=== PATIENT | male | born 1985 | race American Indian/Alaskan Native ===

== ENCOUNTER 2017-03-03 09:33 | Outpatient (CLI) | payer OTHER ==
--- NOTE | 2017-03-03 10:53 | XRay Report ---
RIGHT SHOULDER RADIOGRAPHS INDICATION: Right shoulder pain. COMPARISON: None similar. FINDINGS: Frontal and Y views of the right shoulder, 3 projections demonstrate normal humeral head contour, well positioned against the glenoid. Normal acromioclavicular joint. Preserved scapular contour. Normal visualized soft tissues, right ribs and lung. Motion artifact limits Y view. CONCLUSION: No acute right shoulder radiographic abnormality, as described. Thank you for the opportunity to participate in this patient's care.
--- NOTE | 2017-03-03 11:01 | XRay Report ---
AP AND LATERAL LUMBOSACRAL SPINE: History: Low back pain. The vertebral bodies are well mineralized and normal in alignment and vertebral height with well preserved interspace distances. The visualized portions of the posterior elements are normal. IMPRESSION: Normal study.
== END 2017-03-03 09:34 | disposition home or self-care (01) ==
LOC: XRAY 09:33
PROVIDERS: ATTEND Internal Medicine
DX: I10 Essential (primary) hypertension (principal); Q61.3 Polycystic kidney, unspecified; M54.5 Low back pain; M25.511 Pain in right shoulder
CPT/HCPCS: 36415; 72100; 82565

== ENCOUNTER 2021-04-21 17:57 | Emergency (ER) | payer OTHER ==
[2021-04-21] MEDS ORDERED: HYDROmorphone 1 MG/1 ML INJ IV ONE ×2 (18:14→20:09)
[2021-04-21] MEDS ORDERED: ONDANSETRON 4 MG/2 ML INJ IV ONE ×2 (18:14→20:09)
--- NOTE | 2021-04-21 18:22 | Emergency Department Report ---
ED Fall HPI - General Stated Complaint: DISLOCATION Time Seen by Provider: 04/21/21 18:08 Source: patient, family Mode of arrival: Stretcher Limitations: Physical Limitation - History of Present Illness Initial Comments: 35-year-old male with a past medical history of polycystic kidney disease with renal insufficiency and secondary hypertension presents to the hospital with com plaints of left ankle injury after fall. Patient was skating and fell backwards. Patient has obvious deformity/dislocation of the left ankle. He presents in c-collar which was placed as a precaution. Patient states he did strike the back of his head when he fell but denies LOC. He also complains of chronic ongoing left flank pain secondary to polycystic kidney disease which has worsened since fall. Pain is 10/10 in intensity, worse with palpation and movement. Unable to bear weight - Related Data Previous Rx's Medication Instructions Recorded Last Taken Type HYDROcodone/APAP 5-325 [[facility] 1 each PO Q6HR PRN #15 tablet 04/21/21 Unknown Rx 5/325] Ibuprofen [Motrin] 800 mg PO Q8HR PRN #30 tablet 04/21/21 Unknown Rx Allergies Allergy/AdvReac Type Severity Reaction Status Date / Time Iodinated Contrast Media Allergy Rash Verified 11/06/15 09:54 ED Review of Systems ROS: Stated complaint: DISLOCATION Other details as noted in HPI Comment: All other systems reviewed and negative ED Past Medical Hx - Medications Home Medications: Home Medications Medication Instructions Recorded Confirmed Last Taken Type HYDROcodone/APAP 5-325 [[facility] 1 each PO Q6HR PRN #15 tablet 04/21/21 Unknown Rx 5/325] Ibuprofen [Motrin] 800 mg PO Q8HR PRN #30 tablet 04/21/21 Unknown Rx ED Physical Exam - Other Other exam information: General: No acute distress Head: Atraumatic Eyes: normal appearance ENT: Moist mucous membranes Neck: Normal appearance, no midline tenderness. Patient currently in c-collar Chest: Clear to auscultation bilaterally CV: Regular rate and rhythm Abdomen: Soft, normal bowel sounds, left flank tenderness, nondistended, no rebound or guarding Back: Normal inspection Extremity: Left foot deformity with external 90 degree rotation of the left foot/ankle. 2+ DP pulse. Neuro: Alert O x 3, no facial asymmetry, speech clear, no gross motor sensory deficit Psych: Appropriate behavior Skin: No rash ED Course Vital Signs 04/21/21 04/21/21 04/21/21 17:58 18:21 18:31 Temperature 98.1 F Pulse Rate 77 77 83 Respiratory 17 11 L 12 Rate Blood Pressure 174/112 167/108 Blood Pressure 176/114 [Left] O2 Sat by Pulse 99 97 96 Oximetry 04/21/21 04/21/21 04/21/21 18:45 19:01 19:15 Temperature Pulse Rate 80 82 79 Respiratory 16 16 15 Rate Blood Pressure 173/107 178/111 173/104 Blood Pressure [Left] O2 Sat by Pulse 96 98 96 Oximetry 04/21/21 04/21/21 04/21/21 19:31 19:45 20:01 Temperature Pulse Rate 86 88 87 Respiratory 20 20 21 Rate Blood Pressure 183/108 165/120 181/105 Blood Pressure [Left] O2 Sat by Pulse 100 100 100 Oximetry 04/21/21 04/21/21 04/21/21 20:15 20:31 20:45 Temperature Pulse Rate 84 88 81 Respiratory 25 H 20 21 Rate Blood Pressure 178/109 178/109 Blood Pressure [Left] O2 Sat by Pulse 98 100 Oximetry 04/21/21 04/21/21 04/21/21 21:01 21:15 21:31 Temperature Pulse Rate 81 82 81 Respiratory 21 20 20 Rate Blood Pressure 175/101 175/101 176/108 Blood Pressure [Left] O2 Sat by Pulse 100 100 100 Oximetry 04/21/21 04/21/21 04/21/21 21:45 22:01 22:15 Temperature Pulse Rate 82 91 H 84 Respiratory 22 15 18 Rate Blood Pressure 176/108 176/108 176/108 Blood Pressure [Left] O2 Sat by Pulse 100 99 99 Oximetry 04/21/21 04/21/21 04/21/21 22:31 22:45 23:01 Temperature Pulse Rate 82 76 86 Respiratory 20 14 17 Rate Blood Pressure 172/105 172/105 180/109 Blood Pressure [Left] O2 Sat by Pulse 99 100 100 Oximetry 04/21/21 04/21/21 04/21/21 23:15 23:31 23:45 Temperature Pulse Rate 84 83 82 Respiratory 14 17 15 Rate Blood Pressure 180/109 178/118 178/118 Blood Pressure [Left] O2 Sat by Pulse 99 100 100 Oximetry 04/22/21 04/22/21 00:01 00:15 Temperature Pulse Rate 85 89 Respiratory 14 14 Rate Blood Pressure 181/117 181/117 Blood Pressure [Left] O2 Sat by Pulse 100 100 Oximetry - Reevaluation(s) Reevaluation #1: 04/21/21 22:04 Patient is arm reexamined. He does not have any swelling or discoloration to left arm IV site at area of propofol extravasation. He also denies tenderness on palpation. Patient is more alert and requesting something to drink - Consultations Consultation #1: 04/21/21 21: [address] Lisa orthopedic doctor government contracts manager. Outpatient follow-up advised - Moderate Sedation Indications: fracture/dislocation redu ASA Class: II Mallampati Airway Score: 2 Time of Last PO Intake: 21:00 (yesterday) Preparation: computer repair engineer applied, pulse oximeter, capnometry used, supplemental O2 applied, suction/airway equipment at bedside, IV secured IV Propofol Dose (mgs): 140 Complications: none Interventions: oxygen applied Patient Tolerated Procedure: well Additional Comments: Patient initially received 100 mg of propofol through IV placed by EMS. Although line/without difficulty patient complains of pain to the left arm and was not sedated. Therefore new IV line placed in the right extremity and patient sedated after 140 mg of propofol prior to ankle reduction - Orthopedic Joint Reduction Joint #1 Consent Obtained: written consent Time Out Performed: Yes Side: left Joint Reduction Location: ankle Analgesia: moderate sedation Technique Used: traction/counter-traction, direct manipulation Post-Reduction Neuro Exam: intact Post-Reduction Vascular Exam: intact Post Reduction X-Ray Obtained: Yes Post Reduction X-Ray Results: reduced Splint Applied: Yes Patient Tolerated Procedure: well Additional Comments: Procedure start time 20:05 stop time 20:15 - Orthopedic Splinting/Casting Injury #1 Side: left Lower Extremity Injury Location: lower leg, ankle Lower Extremity Immobilizer: posterior splint, stirrup splint Other Orthopedic Equipment: crutches ED Medical Decision Making - Radiology Data Radiology results: report reviewed LEFT TIBIA AND FIBULA 2 VIEWS INDICATION / CLINICAL INFORMATION: pain and deformity COMPARISON: None available. FINDINGS: BONES / JOINT(S): There is a displaced obliquely oriented fracture of the proximal third of the left fibula. There is dislocation of the ankle joint. There is separation of the distal tibia fibular joint. The talus is lateral to the distal tibia and medial to the distal fibula. SOFT TISSUES: There is soft tissue swelling. ADDITIONAL FINDINGS: None. LEFT FOOT 3 VIEW(S) INDICATION / CLINICAL INFORMATION: pain and deformity COMPARISON: None available. FINDINGS: BONES / JOINT(S): No acute fracture.. There is dislocation of the ankle joint. There is separation of the distal tibiofibular joint. The talus is displaced superiorly into that space with the distal tibia medial to the talus and the distal fibula lateral to the talus. SOFT TISSUES: No significant abnormality. ADDITIONAL FINDINGS: None. Cervical spine 5 views Indication: fall Findings: There is no fracture, subluxation, or other acute radiographic abnormality of the cervical spine. CT CERVICAL SPINE WITHOUT CONTRAST INDICATION / CLINICAL INFORMATION: fall, neck pain, minor head injury. TECHNIQUE: Axial CT images were obtained through the cervical spine. Sagittal and coronal reformatted images were produced. All CT scans at this location are performed using CT dose reduction for ALARA by means of automated exposure control. COMPARISON: None available. FINDINGS: VERTEBRAE: No significant abnormality. ALIGNMENT: No significant abnormality. DISC SPACES: No significant abnormality. FACET JOINTS: No significant abnormality. CRANIOCERVICAL JUNCTION:No significant abnormality. SPINAL CANAL: No significant abnormality. PARASPINAL SOFT TISSUES: No significant abnormality. ADDITIONAL FINDINGS: None. LUNG APICES: No significant abnormality of visualized lungs. IMPRESSION: 1. No fracture is seen. The cervical spine is in normal alignment. CT ABDOMEN AND PELVIS WITHOUT CONTRAST INDICATION / CLINICAL INFORMATION: left flank pain after fall, polycystic kidney dz. TECHNIQUE: Axial CT images were obtained through the abdomen and pelvis without IV contrast. All CT scans at this location are performed using CT dose reduction for ALARA by means of automated exposure control. COMPARISON: None available. FINDINGS: LOWER CHEST: There is mild dependent atelectasis. LIVER: There are a few tiny hypodensities in the liver likely representing cysts. GALLBLADDER: No significant abnormality. BILE DUCTS: No significant abnormality. PANCREAS: No significant abnormality. SPLEEN: No significant abnormality. ADRENALS: No significant abnormality. RIGHT KIDNEY / URETER: Polycystic kidney disease LEFT KIDNEY / URETER: Polycystic kidney disease STOMACH / SMALL BOWEL: No significant abnormality. COLON: No significant abnormality. APPENDIX: No significant abnormality. PERITONEUM: No free fluid. No free air. No fluid collection. LYMPH NODES: No significant adenopathy. AORTA / ARTERIES: No significant abnormality. IVC / VEINS: No significant abnormality. URINARY BLADDER: No significant abnormality. REPRODUCTIVE ORGANS: No significant abnormality. ADDITIONAL FINDINGS: None. SKELETAL SYSTEM: No significant abnormality. IMPRESSION: 1. There is no obstruction, inflammation, or free air. There are no abnormal fluid collections. No intra-abdominal organ injury is identified. 2. There is polycystic kidney disease. LEFT TIBIA AND FIBULA 2 VIEWS post reduction INDICATION / CLINICAL INFORMATION: s/p reduction COMPARISON: 04/21/2021, 1814 hours FINDINGS: BONES / JOINT(S): Dislocation at the ankle joint has been reduced. The ankle joint appears in satisfactory alignment. Fracture of the proximal third of the left tibia is again noted with some improved alignment when compared to earlier. SOFT TISSUES: There is soft tissue swelling. ADDITIONAL FINDINGS: None. - Medical Decision Making 35-year-old male presents to the hospital after fall while skating resulting in a left ankle dislocation with fibular fracture. No other injury identified on imaging studies. Patient required consultation for left ankle reduction with posterior and stirrup splint placement. Patient did have extravasation of blood flow to left arm however, once the new IV was placed he tolerated procedure well. No persistent pain, swelling, discoloration extravasation site. Case discussed with on-call orthopedic surgeon Dr. Lisa. Imaging studies reviewed. Outpatient follow-up advised Patient observed for extended amount of time until he was non drowsy prior to discharge Critical Care Time: No Critical care attestation.: If time is entered above; I have spent that time in minutes in the direct care of this critically ill patient, excluding procedure time. ED Disposition Clinical Impression: Dislocation of left ankle joint, Left fibular fracture, Injection site extravasation Disposition: 01 HOME / SELF CARE / HOMELESS Is pt being admited?: No Condition: Stable Instructions: Cast or Splint Care, Adult, [id number], Tibial and Fibular Fractures, Ankle Dislocation, [id number], Closed Reduction for Ankle Fracture or Dislocation, Care After, IV Infiltration, [id number], Moderate Conscious Sedation, Adult, Care After Additional Instructions: Take the medication as prescribed. Follow-up with your doctor or doctor/clinic provided. Return if symptoms worsen as indicated by your discharge instructions. Continue to monitor your left arm for any increased pain, swelling, or skin discoloration. Please return to the ER for reevaluation if this occurs. Also refer to your IV extravasation discharge instructions. Prescriptions: Ibuprofen [Motrin] 800 mg PO Q8HR PRN #30 tablet PRN Reason: Pain , Severe (7-10) HYDROcodone/APAP 5-325 [[facility] 5/325] 1 each PO Q6HR PRN #15 tablet PRN Reason: Pain Referrals: PRIMARY CARE,MD [Primary Care Provider] - 3-5 Days AUGUSTINE LISA MD [Staff Physician] - 3-5 Days Time of Disposition: 01:03
[2021-04-21] MEDS ORDERED: propofoL 200 MG/20 ML VIAL IV ONE ×2 (18:42→20:10)
--- NOTE | 2021-04-21 19:23 | XRay Report ---
Cervical spine 5 views Indication: fall Findings: There is no fracture, subluxation, or other acute radiographic abnormality of the cervical spine. Signer Name: Trever Ross MD Signed: 04/21/2021 7:18 PM Workstation Name: [id number]
--- NOTE | 2021-04-21 19:24 | XRay Report ---
LEFT TIBIA AND FIBULA 2 VIEWS INDICATION / CLINICAL INFORMATION: pain and deformity COMPARISON: None available. FINDINGS: BONES / JOINT(S): There is a displaced obliquely oriented fracture of the proximal third of the left fibula. There is dislocation of the ankle joint. There is separation of the distal tibia fibular join t. The talus is lateral to the distal tibia and medial to the distal fibula. SOFT TISSUES: There is soft tissue swelling. ADDITIONAL FINDINGS: None. Signer Name: Trever Ross MD Signed: 04/21/2021 7:20 PM Workstation Name: [id number]
--- NOTE | 2021-04-21 19:26 | XRay Report ---
LEFT FOOT 3 VIEW(S) INDICATION / CLINICAL INFORMATION: pain and deformity COMPARISON: None available. FINDINGS: BONES / JOINT(S): No acute fracture.. There is dislocation of the ankle joint. There is separation of the distal tibiofibular joint. The talus is displaced superiorly into that space with the distal tib ia medial to the talus and the distal fibula lateral to the talus. SOFT TISSUES: No significant abnormality. ADDITIONAL FINDINGS: None. Signer Name: Trever Ross MD Signed: 04/21/2021 7:21 PM Workstation Name: [id number]
--- NOTE | 2021-04-21 20:35 | XRay Report ---
LEFT TIBIA AND FIBULA 2 VIEWS INDICATION / CLINICAL INFORMATION: s/p reduction COMPARISON: 04/21/2021, 1814 hours FINDINGS: BONES / JOINT(S): Dislocation at the ankle joint has been reduced. The ankle joint appears in satisfa ctory alignment. Fracture of the proximal third of the left tibia is again noted with some improved alignment when com pared to earlier. SOFT TISSUES: There is soft tissue swelling. ADDITIONAL FINDINGS: None. Signer Name: Trever Ross MD Signed: 04/21/2021 8:30 PM Workstation Name: [id number]
--- NOTE | 2021-04-21 20:59 | Cat Scan Report ---
CT CERVICAL SPINE WITHOUT CONTRAST INDICATION / CLINICAL INFORMATION: fall, neck pain, minor head injury. TECHNIQUE: Axial CT images were obtained through the cervical spine. Sagittal and coronal reformatted images were produced. All CT scans at this location are performed using CT dose reduction for ALARA by means of automated exposure control. COMPARISON: None available. FINDINGS: VERTEBRAE: No significant abnormality. ALIGNMENT: No significant abnormality. DISC SPACES: No significant abnormality. FACET JOINTS: No significant abnormality. CRANIOCERVICAL JUNCTION:No significant abnormality. SPINAL CANAL: No significant abnormality. PARASPINAL SOFT TISSUES: No significant abnormality. ADDITIONAL FINDINGS: None. LUNG APICES: No significant abnormality of visualized lungs. IMPRESSION: 1. No fracture is seen. The cervical spine is in normal alignment. Signer Name: Trever Ross MD Signed: 04/21/2021 8:54 PM Workstation Name: [id number]
--- NOTE | 2021-04-21 21:02 | Cat Scan Report ---
CT ABDOMEN AND PELVIS WITHOUT CONTRAST INDICATION / CLINICAL INFORMATION: left flank pain after fall, polycystic kidney dz. TECHNIQUE: Axial CT images were obtained through the abdomen and pelvis without IV contrast. All CT scans at this location are performed using CT dose reduction for ALARA by means of automated exposure control. COMPARISON: None available. FINDINGS: LOWER CHEST: There is mild dependent atelectasis. LIVER: There are a few tiny hypodensities in the liver likely representing cysts. GALLBLADDER: No significant abnormality. BILE DUCTS: No significant abnormality. PANCREAS: No significant abnormality. SPLEEN: No significant abnormality. ADRENALS: No significant abnormality. RIGHT KIDNEY / URETER: Polycystic kidney disease LEFT KIDNEY / URETER: Polycystic kidney disease STOMACH / SMALL BOWEL: No significant abnormality. COLON: No significant abnormality. APPENDIX: No significant abnormality. PERITONEUM: No free fluid. No free air. No fluid collection. LYMPH NODES: No significant adenopathy. AORTA / ARTERIES: No significant abnormality. IVC / VEINS: No significant abnormality. URINARY BLADDER: No significant abnormality. REPRODUCTIVE ORGANS: No significant abnormality. ADDITIONAL FINDINGS: None. SKELETAL SYSTEM: No significant abnormality. IMPRESSION: 1. There is no obstruction, inflammation, or free air. There are no abnormal fluid collections. No in tra-abdominal organ injury is identified. 2. There is polycystic kidney disease. Signer Name: Trever Ross MD Signed: 04/21/2021 8:57 PM Workstation Name: [id number]
[2021-04-22 00:18] VITALS: BP 181/117
[2021-04-22] MEDS ORDERED: KETOROLAC 30 MG/1 ML INJ IV ONE (00:50)
[2021-04-22] MEDS ORDERED: KETOROLAC 30 MG/1 ML INJ ONE (00:51)
== END 2021-04-22 01:30 | disposition home or self-care (01) ==
LOC: ED 17:57
DX: S93.05XA Dislocation of left ankle joint, initial encounter (principal); S82.492A Other fracture of shaft of left fibula, initial encounter for closed fracture; R10.9 Unspecified abdominal pain; Z91.041 Radiographic dye allergy status; Z79.899 Other long term (current) drug therapy; W18.39XA Other fall on same level, initial encounter; Y93.89 Activity, other specified; Y92.89 Other specified places as the place of occurrence of the external cause; Y99.8 Other external cause status
CPT/HCPCS: 27840; 72040; 72125; 73590; 73620; 74176; 96374; 96375; 99285; J1170; J1885; J2405; J2704; J7120

== ENCOUNTER 2021-04-26 10:43 | Observation (INO) | payer OTHER ==
[2021-04-25 10:40] LABS: Hematocrit 39.4 % (35.5-45.6); Hemoglobin 12.7 gm/dl (11.8-15.2); Mean Corpuscular HGB Conc 32 % (32-34); Mean Corpuscular Volume 91 fl (84-94); Platelet Count 250 K/mm3 (140-440); Red Blood Count 4.32 M/mm3 (3.65-5.03); Red Cell Distribution Width 13.5 % (13.2-15.2)
[2021-04-25 11:04] LABS: Albumin 4.3 g/dL (3.9-5); Calcium 9.5 mg/dL (8.4-10.2)
[~2021-04-26 10:43] MED LIST: ceFAZolin/Water 2 GM/20 ML 2 GM/20 ML SYRINGE IV NR
[2021-04-26] MEDS ORDERED: SODIUM CHLORIDE 0.9% 1000 ML 1,000 ML ONE (11:02)
[2021-04-26] MEDS ORDERED: LACTATED RINGERS 1,000 ML IV SCH (11:30)
[2021-04-26] MEDS ORDERED: MIDAZOLAM 2 MG/2 ML INJ IV NR (11:30)
[2021-04-26] MEDS ORDERED: fentaNYL 100 MCG/2 ML INJ IV SCH (11:30)
[2021-04-26] MEDS ORDERED: ONDANSETRON 4 MG/2 ML INJ IV PRN ×3 (11:30→19:36)
[2021-04-26] MEDS ORDERED: HYDROmorphone 1 MG/1 ML INJ IV PRN ×3 (11:30→19:41)
[2021-04-26] MEDS ORDERED: MIDAZOLAM 2 MG/2 ML INJ ONE ×2 (11:50→12:01)
[2021-04-26] MEDS ORDERED: fentaNYL 100 MCG/2 ML INJ ONE (11:51)
[2021-04-26] MEDS ORDERED: dexAMETHasone 4 MG/ML VIAL ONE (11:52)
[2021-04-26] MEDS ORDERED: BUPIVACAINE/PF (0.5%) 5 MG/1 ML 30 ML VIAL INFILTRATI ONE (11:52)
[2021-04-26] MEDS ORDERED: BUPIVACAINE/PF (0.25%) 2.5 MG/ML 30 ML VIAL INFILTRATI ONE (11:52)
--- NOTE | 2021-04-26 11:54 | Anesthesia Day of Surgery ---
Anesthesia Day of Surgery - Day of Surgery Patient Examined: Yes Patient H&P Reviewed: Yes Patient is NPO: Yes
--- NOTE | 2021-04-26 11:56 | Anesthesia Consultation ---
Anesthesia Consult and Med Hx Date of service: 04/26/21 - Airway Anesthetic Teeth Evaluation: Good ROM Head & Neck: Adequate Mental/Hyoid Distance: Adequate Mallampati Class: Class II Intubation Access Assessment: Good - Pre-Operative Health Status ASA Pre-Surgery Classification: ASA2 Proposed Anesthetic Plan: General Nerve Block: Pop - Pulmonary Hx Smoking: No Hx Sleep Apnea: No (LARISA PRE SCREEN LOW RISK) - Cardiovascular System Hx Hypertension: Yes (" MOST OF LIFE"- DUE TO KIDNEY ISSUES) - Central Nervous System Hx Psychiatric Problems: No - Gastrointestinal Hx Gastroesophageal Reflux Disease: No - Endocrine Hx Renal Disease: Yes (PCKD. Cr 1.9) Hx Non-Insulin Dependent Diabetes: No - Hematic Hx Anemia: No Hx Sickle Cell Disease: No - Other Systems Hx Cancer: No Hx Obesity: Yes
[2021-04-26] MEDS ORDERED: SODIUM CHLORIDE 0.9% 1000 ML 1,000 ML IV SCH (12:00)
[2021-04-26] MEDS ORDERED: KETAMINE/STERILE WATER 50 MG/ML SYRINGE ONE (12:15)
[2021-04-26] MEDS ORDERED: NEOMY 40 MG/POLYMYXIN B 200,000 UNITS/ML (GU) AMPULE IR ONE ×2 (13:55→15:01)
[2021-04-26] MEDS ORDERED: propofoL 200 MG/20 ML VIAL IV ONE (13:56)
[2021-04-26] MEDS ORDERED: LIDOCAINE MPF (2%) 20 MG/1 ML VIAL 5 ML ONE (13:56)
[2021-04-26] MEDS ORDERED: HYDROmorphone 1 MG/1 ML INJ ONE ×3 (13:56→19:28)
[2021-04-26] MEDS ORDERED: SODIUM CHLORIDE 0.9% IRR 1,500 ML BOTTLE IR ONE (15:00)
[2021-04-26] MEDS ORDERED: hydrALAZINE 20 MG/1 ML INJ ONE ×2 (15:47→17:02)
[2021-04-26] MEDS ORDERED: MEPERIDINE 25 MG/1 ML INJ ONE (17:03)
--- NOTE | 2021-04-26 17:23 | Procedure Note ---
Date of procedure: 04/26/21 Pre-op diagnosis: Fracture dislocation left ankle Post-op diagnosis: same Procedure: Open reduction internal fixation left ankle fracture procedure The patient was brought to the OR after being given an obturator femoral nerve block for postop pain management. He was placed on the OR table in supine position following induction with MAC anesthesia the patient's left lower extremity was prepped and draped in the usual sterile manner. A timeout procedu re was done to identify the patient and the correct operative site. The leg was then exsanguinated followed by inflation of the pneumatic tourniquet to 300 mmHg. Utilizing the C arm for accurate placement of our skin incision for the proximal fibular fracture this was then taken down sharply through skin subcu next the fibular fragments were palpated following this reduction was performed using reduction forcep clamps this was then followed by application of a 10 hole one third semitubular plate supplemented with cerclage wire over the comminution site AP and lateral images were obtained showing good reduction of the fracture and placement of our hardware. Next attention was turned to the distal syndesmosis utilizing a a K-wire starting along the distal fibula penetrating both fibular and tibial cortices, next a cannulated 3.2 drill used over-drilled and extending to far cortex distally, this then followed by inserting the guide wire with ZipTight device, after penetrating the far cortex it was then tensioned with the ankle in maximum dorsiflexion, under C-arm visualization the syndesmosis reduced to it normal anatomic position. A secord ZipTight suture anchor deployed using previous technique. AP and lateral views obtained showing good fracture reduction and closure of the syndesmosis. The wound then copiously irrigation and closed in a standard routine fashion, postop dressing applied as well as a well padded short leg splint. Taken to PACU in stable condition Anesthesia: MAC, regional Surgeon: AUGUSTINE SALAZAR Estimated blood loss: 50-100ml Pathology: none Condition: stable Disposition: PACU
[2021-04-26] MEDS: HYDROmorphone 1 MG/1 ML INJ IV PRN ×4 (17:30→18:25)
--- NOTE | 2021-04-26 17:41 | Post Anesthesia Evaluation ---
- Post Anesthesia Evaluation Patient Participated: Yes Airway Patent: Yes Stable Respiratory Function: Yes Nausea/Vomiting: No Temp > 96.8F: Yes Pain Manageable: Yes Adequeate Hydration: Yes Anesthesia Complications: No
[2021-04-26] MEDS ORDERED: hydrALAZINE 20 MG/1 ML INJ IV ONE (18:45)
[2021-04-26] MEDS ORDERED: ACETAMINOPHEN 325 MG TAB PO PRN (19:36)
[2021-04-26] MEDS ORDERED: oxyCODONE /ACETAMINOPHEN 5-325MG TAB PO PRN (19:41)
[2021-04-26] MEDS ORDERED: METOCLOPRAMIDE 10 MG/2 ML INJ IV PRN (19:41)
--- NOTE | 2021-04-26 19:50 | History and Physical Report ---
History of Present Illness Date of examination: 04/26/21 Date of admission: 04/26/2021 Chief complaint: Uncontrolled blood pressure postop History of present illness: Patient in PACU for open reduction and internal fixation of the left ankle fracture . Postop the patient is hypertensive with blood pressures ranging from 220/130- 160/110. Patient is given labetalol IV multiple times with some reduction in the blood pressure. Patient is noncompliant with his blood pressure medications. Patient being admitted for management of blood pressure and hopefully pass possible discharge tomorrow after observation and treatment of his blood pressure. Patient started on hydralazine 50 every 8 and valsartan 160 every 12. Past History Past Medical History: hypertension Past Surgical History: Other (Left ankle surgery) Social history: lives with family, full code Family history: hypertension Medications and Allergies Allergies Allergy/AdvReac Type Severity Reaction Status Date / Time Iodinated Contrast Media Allergy Rash Verified 11/06/15 09:54 Home Medications Medication Instructions Recorded Confirmed Last Taken Type labetaloL [Labetalol 200mg TAB] 400 mg PO BID 04/23/21 04/26/21 04/26/21 05:00 History Gabapentin [Neurontin] 600 mg PO Q8H 04/25/21 04/26/21 04/25/21 History Losartan [Cozaar] 100 mg PO QDAY 04/25/21 04/26/21 04/25/21 History Nortriptyline [Pamelor] 20 mg PO QHS 04/25/21 04/26/21 04/25/21 History Oxycodone HCl/Acetaminophen 1 each PO PRN PRN 04/25/21 04/26/21 04/26/21 05:00 History [Oxycodone-Acetaminophen 10-325] hydrALAZINE [Apresoline TAB] 10 mg PO BID 04/25/21 04/26/21 04/25/21 History hydroCHLOROthiazide [HCTZ] 50 mg PO QDAY 04/25/21 04/26/21 04/26/21 History Oxycodone HCl/Acetaminophen 1 each PO Q6HR PRN #30 tablet 04/26/21 Unknown Rx [Percocet 10/325 mg] Active Meds: Active Medications Acetaminophen (Acetaminophen 325 Mg Tab) 650 mg PO Q4H PRN PRN Reason: Pain MILD(1-3)/Fever >100.5/WILKS Famotidine (Famotidine 20 Mg/2 Ml Inj) 20 mg IV BID JESSICA Hydromorphone HCl (Hydromorphone 1 Mg/1 Ml Inj) 0.5 mg IV Q10MIN PRN PRN Reason: Pain , Severe (7-10) Stop: 04/26/21 23:59 Last Admin: 04/26/21 19:28 Dose: 0.5 mg Documented by: Hydromorphone HCl (Hydromorphone 1 Mg/1 Ml Inj) 0.5 mg IV Q3H PRN PRN Reason: Pain , Severe (7-10) Cefazolin Sodium (Ancef/Sterile Water 2 Gm/20 Ml) 2 gm in 20 mls @ 80 mls/hr IV PREOP NR; Protocol Stop: 04/26/21 21:00 Sodium Chloride (Nacl 0.9% 1000 Ml) 1,000 mls @ 42 mls/hr IV DIRECT JESSICA Last Admin: 04/26/21 11:27 Dose: 42 mls/hr Documented by: Dextrose/Sodium Chloride (D5/0.45ns) 1,000 mls @ 75 mls/hr IV DIRECT JESSICA Metoclopramide HCl (Metoclopramide 10 Mg/2 Ml Inj) 10 mg IV Q6H PRN PRN Reason: Nausea And Vomiting Ondansetron HCl (Ondansetron 4 Mg/2 Ml Inj) 4 mg IV ONCE PRN PRN Reason: Nausea And Vomiting Ondansetron HCl (Ondansetron 4 Mg/2 Ml Inj) 4 mg IV Q3H PRN PRN Reason: Nausea And Vomiting Oxycodone/Acetaminophen (Oxycodone /Acetaminophen 5-325mg Tab) 1 tab PO Q6H PRN PRN Reason: Pain, Moderate (4-6) Sodium Chloride (Sodium Chloride 0.9% 10 Ml Flush Syringe) 10 ml IV BID JESSICA Sodium Chloride (Sodium Chloride 0.9% 10 Ml Flush Syringe) 10 ml IV PRN PRN PRN Reason: LINE FLUSH Review of Systems All systems: negative Exam - Constitutional Vitals: Temp Pulse Resp BP Pulse Ox 97.8 F 110 H 22 187/81 99 04/26/21 17:55 04/26/21 19:00 04/26/21 19:28 04/26/21 19:00 04/26/21 19:00 General appearance: Present: no acute distress, well-nourished - EENT Eyes: Present: PERRL ENT: hearing intact, clear oral mucosa - Neck Neck: Present: supple, normal ROM - Respiratory Respiratory effort: normal Respiratory: bilateral: CTA - Cardiovascular Heart rate: 92 Rhythm: regular Heart Sounds: Present: S1 & S2. Absent: rub, click - Extremities Extremities: no ischemia, pulses intact, pulses symmetrical, No edema Peripheral Pulses: within normal limits - Abdominal General gastrointestinal: Present: soft, non-tender, non-distended, normal bowel sounds Male genitourinary: Present: normal - Rectal Rectal Exam: deferred - Integumentary Integumentary: Present: clear, warm, dry - Musculoskeletal Musculoskeletal: gait normal, strength equal bilaterally - Psychiatric Psychiatric: appropriate mood/affect, intact judgment & insight - Neurologic Neurologic: CNII-XII intact, moves all extremities - Allied Health Allied health notes reviewed: nursing, case management HEART Score - HEART Score History: Slightly suspicious Age: < 45 Risk factors: 1-2 risk factors Troponin: < normal limit - Critical Actions Critical Actions: 0-3 pts:0.9-1.7%risk of adverse cardiac event.Candidate for discharge Results - Labs CBC & Chem 7: 04/25/21 00:01 04/25/21 00:01 Labs: Laboratory Last Values WBC 5.6 K/mm3 (4.5-11.0) 04/25/21 00:01 RBC 4.32 M/mm3 (3.65-5.03) 04/25/21 00:01 Hgb 12.7 gm/dl (11.8-15.2) 04/25/21 00:01 Hct 39.4 % (35.5-45.6) 04/25/21 00:01 MCV 91 fl (84-94) 04/25/21 00:01 MCH 29 pg (28-32) 04/25/21 00:01 MCHC 32 % (32-34) 04/25/21 00:01 RDW 13.5 % (13.2-15.2) 04/25/21 00:01 Plt Count 250 K/mm3 (140-440) 04/25/21 00:01 Sodium 135 mmol/L (137-145) L 04/25/21 00:01 Potassium 3.4 mmol/L (3.6-5.0) L 04/25/21 00:01 Chloride 91.4 mmol/L (98-107) L 04/25/21 00:01 Carbon Dioxide 30 mmol/L (22-30) 04/25/21 00:01 Anion Gap 17 mmol/L 04/25/21 00:01 BUN 24 mg/dL (9-20) H 04/25/21 00:01 Creatinine 1.9 mg/dL (0.8-1.3) H 04/25/21 00:01 Estimated GFR 50 ml/min 04/25/21 00:01 BUN/Creatinine Ratio 13 % 04/25/21 00:01 Glucose 108 mg/dL (75-100) H 04/25/21 00:01 Calcium 9.5 mg/dL (8.4-10.2) 04/25/21 00:01 Total Bilirubin 0.20 mg/dL (0.1-1.2) 04/25/21 00:01 AST 16 units/L (5-40) 04/25/21 00:01 ALT 13 units/L (7-56) 04/25/21 00:01 Alkaline Phosphatase 63 units/L (35-129) 04/25/21 00:01 Total Protein 7.7 g/dL (6.3-8.2) 04/25/21 00:01 Albumin 4.3 g/dL (3.9-5) 04/25/21 00:01 Albumin/Globulin Ratio 1.3 % 04/25/21 00:01 Coronavirus (PCR) Negative (Negative) 04/25/21 09:30 Cheng/IV: Voiding Method Urinal Assessment and Plan Advance Directives: Yes (Full code) VTE prophylaxis?: Chemical Plan of care discussed with patient/family: Yes - Patient Problems (1) Hypertensive emergency Current Visit: Yes Status: Acute Plan to address problem: Patient initiated on hydralazine 50 every 8 and valsartan 160 every 12. Continue his home medication labetalol. IV hydralazine on a as needed basis for blood pressure more than 160/100 every 3 hours as needed (2) Ankle fracture, left Current Visit: Yes Status: Acute Qualifiers: Encounter type: initial encounter Fracture type: closed Qualified Code(s): S82.892A - Other fracture of left lower leg, initial encounter for closed fracture Plan to address problem: S/p open reduction internal fixation left ankle fracture Postop patient doing well except for the blood pressure and pain (3) Hypokalemia Current Visit: Yes Status: Acute Plan to address problem: Supplemented (4) DVT prophylaxis Current Visit: Yes Status: Acute Plan to address problem: On SCDs and GI prophylaxis
[2021-04-26] MEDS ORDERED: D5W/0.45% NACL 1,000 ML IV SCH (20:00)
[2021-04-26] MEDS ORDERED: NON-FORMULARY EACH (Gabapentin [Neurontin] 600 MG Tablet) PO SCH (20:00)
[2021-04-26] MEDS: GABAPENTIN 300 MG CAP PO SCH (21:33)
[2021-04-26] MEDS: VALSARTAN 160MG TAB PO SCH ×2 (21:33→22:27)
[2021-04-26] MEDS: hydrALAZINE 10 MG TAB PO SCH (21:34)
[2021-04-26] MEDS: FAMOTIDINE 20 MG/2 ML INJ IV SCH (21:35)
[2021-04-26] MEDS ORDERED: NORTRIPTYLINE 10 MG CAP PO SCH (22:00)
[2021-04-27] MEDS: HYDROmorphone 1 MG/1 ML INJ IV PRN ×4 (00:50→13:43)
[2021-04-27] MEDS: GABAPENTIN 300 MG CAP PO SCH (05:49)
[2021-04-27] MEDS: hydrALAZINE 10 MG TAB PO SCH (05:49)
[2021-04-27 05:55] LABS: BUN/Creatinine Ratio 16; Blood Urea Nitrogen 24 mg/dL (9-20); Calcium 9.5 mg/dL (8.4-10.2); Hemolysis Index 3
[2021-04-27] MEDS ORDERED: POTASSIUM CHLORIDE ER 20 MEQ TAB PO ONE (06:03)
--- NOTE | 2021-04-27 08:28 | XRay Report ---
XR TIBIA FIBULA 1V LT INDICATION / CLINICAL INFORMATION: LT ANKLE DISLOCATION FIBULAR FX ORIF. COMPARISON: 04/21/21. FINDINGS: A lateral metallic plate and screws transfix the fracture of the proximal fibular shaft. There are ne w surgical changes involving the distal tibia and fibula. Dislocation at the tibiotalar joint has bee n reduced. Disruption of the distal tibiofibular ligament has been reduced. No complication of surger y is seen. Fluoroscopy time: 43 seconds. Fluoroscopic images: 2. Signer Name: James Sears MD Signed: 04/27/2021 8:24 AM Workstation Name: [id number]
[2021-04-27] MEDS: FAMOTIDINE 20 MG/2 ML INJ IV SCH (10:00)
[2021-04-27] MEDS: VALSARTAN 160MG TAB PO SCH (10:00)
--- NOTE | 2021-04-27 13:05 | Discharge Summary ---
Providers - Providers Date of Admission: 04/26/21 19:36 Date of discharge: 04/27/21 Attending physician: AUGUSTINE SALAZAR MD 04/26/21 19:41 Consult to Physician [CONS] Routine Comment: Consulting Provider: AUGUSTINE SALAZAR Physician Instructions: Reason For Exam: Right ankle fracture Hospitalization Reason for admission: Hypertensive urgency Condition: Good Pertinent studies: Reviewed. Procedures: Open repair and internal fixation of left ankle fracture. Hospital course: The patient is a 35-year-old male past medical history hypertension who presented after open reduction and internal fixation of a left ankle fracture involving tibia and fibula by orthopedic surgery on 04/26/2021. The patient was admitted for medical management of hypertension. The patient's blood pressure has since been controlled. The patient will be discharged home with follow-up with orthopedic surgery on Thursday (04/30/2021). The patient expresses understanding. Patient is safe for discharge home. Disposition: 01 HOME / SELF CARE / HOMELESS Final Discharge Diagnosis (Prints w/discharge instructions): Hypertensive urgency, left ankle fracture, hypokalemia Time spent for discharge: 45 min Core Measure Documentation - Palliative Care Palliative Care/ Comfort Measures: Not Applicable - Core Measures Any of the following diagnoses?: none Exam - Constitutional Vitals: Temp Pulse Resp BP Pulse Ox 99.0 F 96 H 20 131/75 99 04/27/21 08:19 04/27/21 08:19 04/27/21 08:34 04/27/21 08:19 04/27/21 10:00 General appearance: Present: no acute distress, well-nourished, obese - EENT Eyes: Present: PERRL, EOM intact ENT: hearing intact, clear oral mucosa, dentition normal - Neck Neck: Present: supple, normal ROM - Respiratory Respiratory effort: normal Respiratory: bilateral: CTA - Cardiovascular Rhythm: regular Heart Sounds: Present: S1 & S2 - Extremities Extremities: no ischemia, pulses intact, pulses symmetrical, No edema, normal temperature, normal color, abnormal (Wrapped left lower leg secondary to recent open internal fixation) Extremity abnormal: tenderness (Appropriate tenderness of left lower leg secondary to open internal fixation) Peripheral Pulses: within normal limits - Abdominal General gastrointestinal: Present: soft, non-tender, non-distended, normal bowel sounds Male genitourinary: Present: deferred - Rectal Rectal Exam: deferred - Integumentary Integumentary: Present: clear, warm, dry - Musculoskeletal Musculoskeletal: strength equal bilaterally - Psychiatric Psychiatric: appropriate mood/affect, intact judgment & insight, memory intact, cooperative - Neurologic Neurologic: CNII-XII intact, moves all extremities - Allied Health Allied health notes reviewed: nursing Plan Care Plan Goals: Patient can discharge home safely. Assessment: Patient is a 35-year-old male with past medical history of hypertension who presented with left ankle fracture requiring open reduction and internal fixation by general surgery on 04/26/2021. The patient was admitted for blood pressure control with a goal of discharging home today. -Left tibial/fibular x-ray revealing "no surgical changes involving the distal tibia and fibula. Disruption of the distal tibiofibular ligament has been reduced." -Orthopedic surgery performed open reduction with internal fixation of left ankle fracture (04/26/2021) Follow up with: [facility] [Other] - 7 Days AUGUSTINE SALAZAR MD [Staff Physician] - 04/30/21 Prescriptions: Oxycodone HCl/Acetaminophen [Percocet 10/325 mg] 1 each PO Q6HR PRN #30 tablet PRN Reason: Pain
[2021-04-27 14:25] VITALS: BP 142/78
== END 2021-04-27 13:39 | disposition home or self-care (01) ==
LOC: OR 10:43 → 4A 19:36
PROVIDERS: ADMIT Internal Medicine; ATTEND Orthopaedic Surgery
DX: S82.62XB Displaced fracture of lateral malleolus of left fibula, initial encounter for open fracture type I or II (principal); Z20.822 Contact with and (suspected) exposure to COVID-19; S82.832B Other fracture of upper and lower end of left fibula, initial encounter for open fracture type I or II; I16.1 Hypertensive emergency; M25.572 Pain in left ankle and joints of left foot; E87.6 Hypokalemia; Q61.3 Polycystic kidney, unspecified; I15.9 Secondary hypertension, unspecified; W19.XXXA Unspecified fall, initial encounter; Y93.89 Activity, other specified; Y92.89 Other specified places as the place of occurrence of the external cause; Y99.8 Other external cause status
CPT/HCPCS: 27792; 27829; 36415; 64450; 73590; 80048; 80053; 85027; 94760; 96374; 96375; 96376; C1713; G0378; J0360; J0690; J1100; J1170; J2175; J2250; J2704; J3010; J3490; J7030; J7070; U0003; J7120; Q0162

== ENCOUNTER 2021-05-31 08:50 | Outpatient (CLI) | payer OTHER ==
--- NOTE | 2021-05-31 09:51 | XRay Report ---
LEFT TIBIA AND FIBULA 2 VIEWS INDICATION: PAIN IN LEFT ANKLE,DISPLACED MAISONNEUVE'S FRACTURE OF LEFT LEG. COMPARISON: 04/21/2021. 04/26/2021 operative films. IMPRESSION: Previously described internally fixated maisonneuve's fracture/dislocation of the left l ower extremity is unchanged in position and alignment since the operative films dated 04/26/2021. Ali gnment is anatomic. Normal articulation at the knee and ankle. No new acute bony process is appreciat ed. A posterior splint has been applied. Signer Name: Melvin Aguilera Jr, MD Signed: 05/31/2021 9:46 AM Workstation Name: [id number]
== END 2021-05-31 08:51 | disposition home or self-care (01) ==
LOC: XRAY 08:50
PROVIDERS: ATTEND Orthopaedic Surgery
DX: S82.892A Other fracture of left lower leg, initial encounter for closed fracture (principal); S82.862A Displaced Maisonneuve's fracture of left leg, initial encounter for closed fracture; X58.XXXA Exposure to other specified factors, initial encounter; Y93.89 Activity, other specified; Y92.89 Other specified places as the place of occurrence of the external cause; Y99.8 Other external cause status

== ENCOUNTER 2021-07-29 10:35 | Outpatient (CLI) | payer OTHER ==
--- NOTE | 2021-07-29 14:28 | XRay Report ---
Left tibia-fibula, 4 views HISTORY: Postsurgery COMPARISON: 05/31/2021. FINDINGS: There is stable alignment of internally fixated proximal to mid left fibular fracture. Ther e is suggestion of interval healing. Minimal fracture lucency persists. Distal syndesmotic fixation h ardware is also intact by radiograph. No hardware complication. No new skeletal abnormality. Signer Name: Eugene Collins MD Signed: 07/29/2021 2:24 PM Workstation Name: [id number]
== END 2021-07-29 10:36 | disposition home or self-care (01) ==
LOC: XRAY 10:35
PROVIDERS: ATTEND Orthopaedic Surgery
DX: S82.862A Displaced Maisonneuve's fracture of left leg, initial encounter for closed fracture (principal); S82.892A Other fracture of left lower leg, initial encounter for closed fracture; X58.XXXA Exposure to other specified factors, initial encounter; Y93.89 Activity, other specified; Y92.89 Other specified places as the place of occurrence of the external cause; Y99.8 Other external cause status

== ENCOUNTER 2021-09-03 11:21 | Outpatient (CLI) | payer OTHER ==
--- NOTE | 2021-09-03 14:09 | XRay Report ---
Left tibia and fibula 4 views INDICATION: Prior surgery FINDINGS: Extensive postoperative changes seen within the fibula and distal tibia and fibula. No soft tissue abnormalities identified. No acute fractures seen. Mild swelling in the medial ankle. Signer Name: Niranjan Dale MD Signed: 09/03/2021 2:05 PM Workstation Name: [id number]
== END 2021-09-03 11:22 | disposition home or self-care (01) ==
LOC: XRAY 11:21
PROVIDERS: ATTEND Orthopaedic Surgery
DX: S82.862A Displaced Maisonneuve's fracture of left leg, initial encounter for closed fracture (principal); S82.892A Other fracture of left lower leg, initial encounter for closed fracture; R22.42 Localized swelling, mass and lump, left lower limb; X58.XXXA Exposure to other specified factors, initial encounter; Y93.89 Activity, other specified; Y92.89 Other specified places as the place of occurrence of the external cause; Y99.8 Other external cause status

== ENCOUNTER 2021-11-21 08:17 | Outpatient (CLI) | payer OTHER ==
--- NOTE | 2021-11-21 13:46 | XRay Report ---
LEFT TIBIA AND FIBULA 2 VIEWS INDICATION: M25.572 PAIN IN LEFT ANKLE JOINTS OF LEFT FOOT. COMPARISON: 09/03/2021 IMPRESSION: Internal fixation of the proximal fibula and surgical changes in the distal tibia and fi bula are unchanged in position and alignment since 09/03/2021. No acute osseous injury is appreciated. The soft tissues are unremarkable. No change is demonstrated since 09/03/2021. Signer Name: Melvin Aguilera Jr, MD Signed: 11/21/2021 1:41 PM Workstation Name: [id number]
== END 2021-11-21 08:18 | disposition home or self-care (01) ==
LOC: XRAY 08:17
PROVIDERS: ATTEND Orthopaedic Surgery
DX: S82.862A Displaced Maisonneuve's fracture of left leg, initial encounter for closed fracture (principal); S82.892A Other fracture of left lower leg, initial encounter for closed fracture; X58.XXXA Exposure to other specified factors, initial encounter; Y93.89 Activity, other specified; Y92.89 Other specified places as the place of occurrence of the external cause; Y99.8 Other external cause status